=== PATIENT | female | born 1985 | race Caucasian/White ===

== ENCOUNTER 2019-06-17 12:04 | Day surgery (SDC) | payer BC ==
[~2019-06-17] VITALS: Ht 162.6 cm; Wt 56.3 kg
[~2019-06-17 12:04] MED LIST: PRENATAL VITAMI1 TA5 PO
[2019-06-17 12:42] VITALS: BP 111/82; PULSE 94; TEMP 97.2
--- NOTE | 2019-06-17 12:47 | NUR ---
TO RM AT 1225- CALL LIGHT IN REACH WILL CALL MOM FOR RIDE AT HOME
[2019-06-17 14:10] VITALS: BP 116/75; PULSE 77; TEMP 97.3
--- NOTE | 2019-06-17 14:10 | NUR ---
Patient brought back to [facility] via cart, ambulated to chair without difficulty. Placed on monitors, vital signs stable. Report recieved from Rosenda RN. Denies nausea or pain. Requesting water and apple sauce. Warm blanket provided, call bah within reach. Will continue to monitor.
[2019-06-17 14:25] VITALS: BP 107/79; PULSE 92
--- NOTE | 2019-06-17 14:25 | NUR ---
Patient tolerating food and drink without difficulty. All safety maintained, will continue to monitor.
[2019-06-17 14:40] VITALS: BP 114/71; PULSE 76
--- NOTE | 2019-06-17 14:50 | NUR ---
Patient states she is ready to go home. Just waiting on mother to show up to hospital. [facility] instructions reviewed with patient, all questions answered. IV removed. Patient to get dressed at this time. Will continue to monitor.
--- NOTE | 2019-06-17 15:40 | NUR ---
Patients mother arrived at hospital. Taken to lobby via wheel chair. Patient to be driven home by mother.
== END 2019-06-17 15:40 | disposition home or self-care (01) ==
LOC: SDCO 12:04
DX: D72.820 Lymphocytosis (symptomatic) (principal); K62.89 Other specified diseases of anus and rectum; R19.7 Diarrhea, unspecified; K29.30 Chronic superficial gastritis without bleeding; K29.60 Other gastritis without bleeding; K63.9 Disease of intestine, unspecified; R53.83 Other fatigue
CPT/HCPCS: J2250; J3010; J7030

== ENCOUNTER → 2023-10-05 | Outpatient (CLI) | payer BC | LOC: COL.VAS 08:34 | DX: J90 Pleural effusion, not elsewhere classified (principal); R01.1 Cardiac murmur, unspecified; R00.2 Palpitations ==

== ENCOUNTER → 2023-10-09 | Outpatient (CLI) | payer BC ==
[~2023-10-09] MED LIST changes: +Iohexol 300 - 100 ML VIAL IV ONE; +NS 100 ML IV SCH
== END ==
LOC: COL.RAD 10-06 11:41
DX: K80.20 Calculus of gallbladder without cholecystitis without obstruction (principal); R06.02 Shortness of breath
CPT/HCPCS: Q9967

== ENCOUNTER → 2023-12-11 | Outpatient (CLI) | payer BC ==
[~2023-12-11] MED LIST changes: -Iohexol 300 - 100 ML VIAL IV ONE; -NS 100 ML IV SCH
== END ==
LOC: COL.RAD 10:00
DX: K80.20 Calculus of gallbladder without cholecystitis without obstruction (principal)